=== PATIENT | female | born 1960 | race Caucasian/White ===

== ENCOUNTER 2020-07-25 21:57 | Observation (INO) ==
[2020-07-26] MEDS ORDERED: Melatonin 3 MG TABLET PO PRN (00:39)
[2020-07-26] MEDS ORDERED: Acetaminophen 325 MG TABLET PO PRN (00:39)
[2020-07-26] MEDS ORDERED: Ondansetron 4 MG/2 ML VIAL IVP PRN (00:39)
[2020-07-26] MEDS ORDERED: Naloxone 0.4 MG/ML INJ IVP PRN (00:39)
[2020-07-26 02:58] LABS: Basophils % 0.5 %; Eosinophils # 0.2 K/mcL (0.0-0.6); Eosinophils % 2.1 %; Hematocrit 38.8 % (35.3-44.9); Hemoglobin 12.7 g/dL (11.5-15.4); Immature Granulocytes % 0.3 % (0-4); Lymphocytes # 1.4 K/mcL (0.6-4.6); Lymphocytes % 16.4 %; Mean Corpuscular HGB Conc 32.7 g/dL (31.6-35.5); Mean Corpuscular Hemoglobin 29.4 pg (28.0-33.3); Mean Corpuscular Volume 89.8 fL (83.0-100.0); Mean Platelet Volume 10.1 fL (9.4-12.4); Monocytes # 0.6 K/mcL (0.0-1.3); Neutrophils # 6.3 K/mcL (1.6-8.9); Platelet Count 277 K/mcL (140-400); Red Blood Count 4.32 M/mcL (3.82-4.97); Segmented Neutrophils % 73.7 %; White Blood Count 8.6 K/mcL (4.3-11.1)
[2020-07-26 03:14] LABS: INR 1.3; Prothrombin Time 14.7 Seconds (9.4-12.1)
[2020-07-26 03:20] LABS: Alanine Aminotransferase 14 Units/L (7-52); Albumin 3.9 g/dL (3.5-5.7); Albumin/Globulin Ratio 1.1 (1.1-2.2); Alkaline Phosphatase 81 Units/L (34-104); Aspartate Amino Transferase 15 Units/L (13-39); BUN/Creatinine Ratio 18 (6-26); Bilirubin,Total 0.4 mg/dL (0.3-1.0); Blood Urea Nitrogen 18 mg/dL (8-23); Calcium 9.4 mg/dL (8.6-10.3); Carbon Dioxide 27 mEq/L (23-29); Chloride 102 mEq/L (98-107); Globulin 3.6 g/dL (2.4-3.5); Glucose 118 mg/dL (70-105); Osmolality,Calculated 287 (280-300); Phosphorous 4.4 mg/dL (2.7-4.5); Potassium 3.7 mEq/L (3.5-5.1); Sodium 137 mEq/L (136-145); Total Protein 7.5 g/dL (6.4-8.9); Troponin I < 0.03 ng/mL (< 0.04); eGFR For African Americans > 60 (> 60); eGFR For Non-African Americans 58 (> 60)
[2020-07-26] MEDS ORDERED: Regadenoson 0.4 MG/5 ML SYRINGE IVP ONE (07:06)
[2020-07-26 14:47] VITALS: BP 121/72
[2020-07-26] MEDS ORDERED: *HR* Heparin 5,000 UNIT/ML VIAL SQ SCH (18:00)
== END 2020-07-26 16:50 | disposition home or self-care (01) ==
LOC: 3BNU → SUATTDRO 07-26 00:02
PROVIDERS: ADMIT Internal Medicine; ATTEND Registered Nurse

== ENCOUNTER 2021-04-15 19:57 | Inpatient (IN) ==
[2021-04-16] MEDS ORDERED: Acetaminophen 325 MG TABLET PO PRN (04:40)
[2021-04-16] MEDS ORDERED: Naloxone 0.4 MG/ML INJ IVP PRN (04:40)
[2021-04-16] MEDS ORDERED: Ondansetron 4 MG/2 ML VIAL IVP PRN (04:40)
[2021-04-16] MEDS ORDERED: Perflutren Lipid Microsphere 1.3 ML in 0.9 % Sodium Chloride 8.7 ML IVP PRN (04:51)
[2021-04-16] MEDS ORDERED: Amiodarone Premix 360 MG/200 ML BAG IVC ONE (04:53)
[2021-04-16] MEDS ORDERED: levoFLOXacin 750 MG/150 ML 750 MG/150 ML BAG IVPB SCH (05:00)
[2021-04-16] MEDS ORDERED: Amiodarone Premix 360 MG/200 ML BAG IVC SCH ×2 (05:30→10:54)
[2021-04-16 06:09] LABS: Basophils % 0.1 %; Hematocrit 40.3 % (35.3-44.9); Hemoglobin 12.6 g/dL (11.5-15.4); Immature Granulocytes % 0.4 % (0-4); Lymphocytes # 0.5 K/mcL (0.6-4.6); Lymphocytes % 5.5 %; Mean Corpuscular HGB Conc 31.3 g/dL (31.6-35.5); Mean Corpuscular Hemoglobin 28.4 pg (28.0-33.3); Mean Corpuscular Volume 90.8 fL (83.0-100.0); Mean Platelet Volume 10.5 fL (9.4-12.4); Monocytes # 0.3 K/mcL (0.0-1.3); Monocytes % 3.1 %; Neutrophils # 7.4 K/mcL (1.6-8.9); Platelet Count 218 K/mcL (140-400); Red Blood Count 4.44 M/mcL (3.82-4.97); Red Cell Distribution Width 13.9 % (11.5-14.5); Segmented Neutrophils % 90.9 %; White Blood Count 8.1 K/mcL (4.3-11.1)
[2021-04-16 06:19] LABS: INR 1.6; Prothrombin Time 17.3 Seconds (9.4-12.1)
[2021-04-16 06:23] LABS: D-Dimer 1183 ng/mLFEU (0-500)
[2021-04-16 06:25] LABS: Chol/HDL Ratio 3.7 (0-4.9); Cholesterol 103 mg/dL (< 200); HDL Cholesterol 28 mg/dL (40-59); LDL Cholesterol,Calculated 58 mg/dL (< 100); Magnesium 1.9 mg/dL (1.6-2.6); Phosphorous 3.4 mg/dL (2.7-4.5); Triglycerides 87 mg/dL (< 150); Troponin I < 0.03 ng/mL (< 0.04)
[2021-04-16 06:26] LABS: Calcium 8.7 mg/dL (8.6-10.3); Potassium 4.9 mEq/L (3.5-5.1)
[2021-04-16 06:28] LABS: Fibrinogen 727 mg/dL (169-393)
[2021-04-16] MEDS ORDERED: GuaiFENesin/Codeine Oral Soln 5 ML UDC PO PRN (06:29)
[2021-04-16 06:37] LABS: Thyroid Stimulating Hormone 0.241 mcIU/mL (0.340-5.600)
[2021-04-16] MEDS: Apixaban 5 MG TABLET PO SCH ×2 (08:49→19:55)
[2021-04-16] MEDS: (Ezetimibe [Zetia] 10 MG Tablet) PO SCH (08:50)
[2021-04-16] MEDS ORDERED: Metoprolol XL (24 HR) Succ 25 MG TAB.ER.24H PO SCH (09:00)
[2021-04-16 09:58] LABS: Bacteria,Urine Few per hpf (None-Few); Bilirubin,Urine Negative (Negative); Blood,Urine Large (Negative); Clarity,Urine Turbid (Clear); Color,Urine Light-Yellow (Yellow); Glucose,Urine (UA) Normal (Normal); Hyaline Casts,Urine Few per lpf (None Seen); Ketones,Urine Negative (Negative); Leukocyte Esterase,Urine Negative (Negative); Mucus,Urine Few per lpf (None-Few); Nitrite,Urine Negative (Negative); Protein,Urine 30 mg/dL (Neg-Trace); RBC,Urine 50-100 per hpf (0-3); Specific Gravity,Urine 1.019 (1.010-1.025); Squamous Epithelial Cell,Urine Few per hpf (None-Few); Uric Acid Crystals,Urine Present per hpf; Urobilinogen,Urine Normal (Normal)
[2021-04-16] MEDS ORDERED: Metoprolol XL (24 HR) Succ 25 MG TAB.ER.24H PO ONE (10:00)
[2021-04-16 13:00] LABS: Estimated Average Glucose 146 mg/dl; Hemoglobin A1C 6.7 %
[2021-04-16] MEDS: Ipratropium 1 PUFF INHALER IH SCH ×4 (15:48→23:48)
[2021-04-16] MEDS: *HR* Metoprolol 5 MG/5 ML VIAL IVP PRN (16:37)
[2021-04-16 19:02] LABS: Albumin 3.4 g/dL (3.5-5.7); Albumin/Globulin Ratio 0.8 (1.1-2.2); Bilirubin,Direct 0.1 mg/dL (0.0-0.2); Bilirubin,Indirect 0.3 mg/dL (0.0-1.0); Bilirubin,Total 0.4 mg/dL (0.3-1.0); Globulin 4.2 g/dL (2.4-3.5); Total Protein 7.6 g/dL (6.4-8.9)
[2021-04-16] MEDS: Metoprolol XL (24 HR) Succ 25 MG TAB.ER.24H PO SCH (19:55)
[2021-04-17] MEDS: tiZANidine 4 MG TABLET PO PRN (02:02)
[2021-04-17 02:07] LABS: Basophils % 0.1 %; Hematocrit 41.6 % (35.3-44.9); Hemoglobin 13.6 g/dL (11.5-15.4); Immature Granulocytes % 0.9 % (0-4); Lymphocytes # 0.4 K/mcL (0.6-4.6); Lymphocytes % 4.9 %; Mean Corpuscular HGB Conc 32.7 g/dL (31.6-35.5); Mean Corpuscular Hemoglobin 28.9 pg (28.0-33.3); Mean Corpuscular Volume 88.3 fL (83.0-100.0); Mean Platelet Volume 10.8 fL (9.4-12.4); Monocytes # 0.3 K/mcL (0.0-1.3); Monocytes % 3.7 %; Platelet Count 299 K/mcL (140-400); Red Blood Count 4.71 M/mcL (3.82-4.97); Red Cell Distribution Width 13.8 % (11.5-14.5); Segmented Neutrophils % 90.4 %; White Blood Count 7.8 K/mcL (4.3-11.1)
[2021-04-17 02:29] LABS: Albumin 3.5 g/dL (3.5-5.7); Albumin/Globulin Ratio 0.8 (1.1-2.2); Bilirubin,Total 0.4 mg/dL (0.3-1.0); Calcium 9.7 mg/dL (8.6-10.3); Globulin 4.4 g/dL (2.4-3.5); Potassium 4.8 mEq/L (3.5-5.1); Total Protein 7.9 g/dL (6.4-8.9)
[2021-04-17] MEDS ORDERED: 0.9 % Sodium Chloride 500 ML ONE (03:24)
[2021-04-17] MEDS: Ipratropium 1 PUFF INHALER IH SCH ×5 (03:59→20:10)
[2021-04-17] MEDS: 0.9 % Sodium Chloride 500 ML IVC SCH ×2 (07:27→07:28)
[2021-04-17] MEDS: (Ezetimibe [Zetia] 10 MG Tablet) PO SCH (08:44)
[2021-04-17] MEDS: Metoprolol XL (24 HR) Succ 25 MG TAB.ER.24H PO SCH ×2 (08:44→21:23)
[2021-04-17] MEDS: Apixaban 5 MG TABLET PO SCH ×2 (08:44→21:23)
[2021-04-17] MEDS ORDERED: *HR* Digoxin 0.5 MG/2 ML AMPUL IVP ONE (09:30)
[2021-04-17] MEDS ORDERED: Remdesivir 200 MG in 0.9 % Sodium Chloride 100 ML IVPB ONE (10:43)
[2021-04-17] MEDS: Benzonatate 100 MG CAPSULE PO PRN (11:09)
[2021-04-17] MEDS: *HR* Digoxin 0.5 MG/2 ML AMPUL IVP SCH ×2 (16:30→21:23)
[2021-04-17] MEDS ORDERED: Saliva Stimulant 44.3ml BOTTLE PO PRN (21:32)
[2021-04-17 21:53] LABS: ABG Base Excess -1 mEq/L (-2 to 3); ABG HCO3 23 mEq/L (21-27); ABG Oxygen Saturation 94 % (95-98); ABG PCO2 35 mmHg (35-45); ABG PH 7.42 pH Units (7.32-7.45); ABG PO2 71 mmHg (85-104); ABG TCO2 24 mEq/L (20-26); Blood Gas Modality CPAP/PS; Blood Gas Pressure Support 16 cm H2O
[2021-04-18] MEDS: tiZANidine 4 MG TABLET PO PRN ×2 (00:38→23:15)
[2021-04-18] MEDS: Saline Nasal Spray 44 ML BOTTLE NS SCH ×4 (00:38→20:35)
[2021-04-18] MEDS: Ipratropium 1 PUFF INHALER IH SCH ×7 (01:13→23:23)
[2021-04-18] MEDS ORDERED: *HR* OxyCODONE/APAP 5/325 TABLET PO ONE (03:51)
[2021-04-18 05:09] LABS: Albumin 3.6 g/dL (3.5-5.7); Albumin/Globulin Ratio 0.8 (1.1-2.2); Bilirubin,Direct 0.1 mg/dL (0.0-0.2); Bilirubin,Indirect 0.5 mg/dL (0.0-1.0); Bilirubin,Total 0.6 mg/dL (0.3-1.0); Globulin 4.4 g/dL (2.4-3.5)
[2021-04-18] MEDS: Chlorhexidine Rinse 15 ML MOUTHWASH MM SCH ×2 (08:44→20:35)
[2021-04-18] MEDS: Artificial Tears SOLN 15 ML BOTTLE BOTH EYES SCH ×4 (08:44→20:35)
[2021-04-18] MEDS: (Ezetimibe [Zetia] 10 MG Tablet) PO SCH (08:45)
[2021-04-18] MEDS: Metoprolol XL (24 HR) Succ 25 MG TAB.ER.24H PO SCH ×2 (08:45→20:35)
[2021-04-18] MEDS: Apixaban 5 MG TABLET PO SCH ×2 (08:45→20:34)
[2021-04-18] MEDS: Remdesivir 100 MG in 0.9 % Sodium Chloride 100 ML IVPB SCH (11:29)
[2021-04-18] MEDS ORDERED: Furosemide 40 MG/4 ML VIAL IVP ONE (11:45)
[2021-04-19] MEDS: Ipratropium 1 PUFF INHALER IH SCH ×5 (03:46→20:18)
[2021-04-19 06:59] LABS: Albumin 3.9 g/dL (3.5-5.7); Albumin/Globulin Ratio 0.9 (1.1-2.2); Bilirubin,Direct 0.2 mg/dL (0.0-0.2); Bilirubin,Indirect 0.5 mg/dL (0.0-1.0); Bilirubin,Total 0.7 mg/dL (0.3-1.0); Globulin 4.3 g/dL (2.4-3.5); Total Protein 8.2 g/dL (6.4-8.9)
[2021-04-19] MEDS: Apixaban 5 MG TABLET PO SCH ×2 (08:52→21:11)
[2021-04-19] MEDS: Chlorhexidine Rinse 15 ML MOUTHWASH MM SCH ×2 (08:52→21:11)
[2021-04-19] MEDS: (Ezetimibe [Zetia] 10 MG Tablet) PO SCH (08:52)
[2021-04-19] MEDS: Metoprolol XL (24 HR) Succ 25 MG TAB.ER.24H PO SCH ×2 (08:52→21:11)
[2021-04-19] MEDS: Artificial Tears SOLN 15 ML BOTTLE BOTH EYES SCH ×4 (09:08→21:11)
[2021-04-19] MEDS: Saline Nasal Spray 44 ML BOTTLE NS SCH ×4 (09:08→21:11)
[2021-04-19 10:13] LABS: Hematocrit 46.5 % (35.3-44.9); Mean Corpuscular HGB Conc 32.3 g/dL (31.6-35.5); Mean Corpuscular Hemoglobin 28.1 pg (28.0-33.3); Mean Corpuscular Volume 87.2 fL (83.0-100.0); Mean Platelet Volume 10.5 fL (9.4-12.4); Platelet Count 469 K/mcL (140-400); Red Blood Count 5.33 M/mcL (3.82-4.97); Red Cell Distribution Width 13.6 % (11.5-14.5); White Blood Count 10.9 K/mcL (4.3-11.1)
[2021-04-19 10:32] LABS: Calcium 9.9 mg/dL (8.6-10.3); Potassium 4.7 mEq/L (3.5-5.1)
[2021-04-19] MEDS: Remdesivir 100 MG in 0.9 % Sodium Chloride 100 ML IVPB SCH (10:41)
[2021-04-20] MEDS: Ipratropium 1 PUFF INHALER IH SCH ×6 (00:44→20:46)
[2021-04-20 04:37] LABS: Basophils % 0.2 %; Hematocrit 46.3 % (35.3-44.9); Hemoglobin 14.9 g/dL (11.5-15.4); Immature Granulocytes % 0.8 % (0-4); Lymphocytes # 0.8 K/mcL (0.6-4.6); Lymphocytes % 5.8 %; Mean Corpuscular HGB Conc 32.2 g/dL (31.6-35.5); Mean Corpuscular Hemoglobin 28.1 pg (28.0-33.3); Mean Corpuscular Volume 87.2 fL (83.0-100.0); Mean Platelet Volume 10.6 fL (9.4-12.4); Monocytes # 0.6 K/mcL (0.0-1.3); Monocytes % 4.5 %; Neutrophils # 12.2 K/mcL (1.6-8.9); Platelet Count 424 K/mcL (140-400); Red Blood Count 5.31 M/mcL (3.82-4.97); Red Cell Distribution Width 13.4 % (11.5-14.5); Segmented Neutrophils % 88.7 %; White Blood Count 13.8 K/mcL (4.3-11.1)
[2021-04-20 04:54] LABS: Albumin 3.8 g/dL (3.5-5.7); Albumin/Globulin Ratio 0.9 (1.1-2.2); Bilirubin,Direct 0.2 mg/dL (0.0-0.2); Bilirubin,Indirect 0.6 mg/dL (0.0-1.0); Bilirubin,Total 0.8 mg/dL (0.3-1.0); Globulin 4.1 g/dL (2.4-3.5); Total Protein 7.9 g/dL (6.4-8.9)
[2021-04-20 04:57] LABS: Calcium 9.8 mg/dL (8.6-10.3); Potassium 4.8 mEq/L (3.5-5.1)
[2021-04-20] MEDS: Metoprolol XL (24 HR) Succ 25 MG TAB.ER.24H PO SCH ×2 (08:34→21:12)
[2021-04-20] MEDS: Apixaban 5 MG TABLET PO SCH ×2 (08:34→21:12)
[2021-04-20] MEDS: Saline Nasal Spray 44 ML BOTTLE NS SCH ×4 (08:35→21:11)
[2021-04-20] MEDS: Chlorhexidine Rinse 15 ML MOUTHWASH MM SCH ×3 (08:35→21:12)
[2021-04-20] MEDS: Artificial Tears SOLN 15 ML BOTTLE BOTH EYES SCH ×4 (08:35→21:11)
[2021-04-20] MEDS: (Ezetimibe [Zetia] 10 MG Tablet) PO SCH (08:36)
[2021-04-20] MEDS: tiZANidine 4 MG TABLET PO PRN (09:55)
[2021-04-20] MEDS: Remdesivir 100 MG in 0.9 % Sodium Chloride 100 ML IVPB SCH (11:47)
[2021-04-21] MEDS: Ipratropium 1 PUFF INHALER IH SCH ×7 (00:31→23:39)
[2021-04-21 03:30] LABS: Basophils % 0.1 %; Hematocrit 46.2 % (35.3-44.9); Immature Granulocytes % 1.2 % (0-4); Lymphocytes # 0.7 K/mcL (0.6-4.6); Lymphocytes % 4.5 %; Mean Corpuscular HGB Conc 32.5 g/dL (31.6-35.5); Mean Corpuscular Volume 86.2 fL (83.0-100.0); Mean Platelet Volume 9.9 fL (9.4-12.4); Monocytes # 0.5 K/mcL (0.0-1.3); Monocytes % 3.2 %; Neutrophils # 13.6 K/mcL (1.6-8.9); Platelet Count 333 K/mcL (140-400); Red Blood Count 5.36 M/mcL (3.82-4.97); Red Cell Distribution Width 13.2 % (11.5-14.5); White Blood Count 14.9 K/mcL (4.3-11.1)
[2021-04-21 03:51] LABS: Calcium 9.4 mg/dL (8.6-10.3); Potassium 4.9 mEq/L (3.5-5.1)
[2021-04-21] MEDS: Apixaban 5 MG TABLET PO SCH ×2 (08:48→21:36)
[2021-04-21] MEDS: Metoprolol XL (24 HR) Succ 25 MG TAB.ER.24H PO SCH ×2 (08:48→21:37)
[2021-04-21] MEDS: Benzonatate 100 MG CAPSULE PO PRN (08:49)
[2021-04-21] MEDS: Saline Nasal Spray 44 ML BOTTLE NS SCH ×4 (08:49→21:37)
[2021-04-21] MEDS: Chlorhexidine Rinse 15 ML MOUTHWASH MM SCH ×2 (08:49→21:26)
[2021-04-21] MEDS: (Ezetimibe [Zetia] 10 MG Tablet) PO SCH (08:50)
[2021-04-21 09:26] LABS: Albumin 3.8 g/dL (3.5-5.7); Bilirubin,Direct 0.2 mg/dL (0.0-0.2); Bilirubin,Indirect 0.5 mg/dL (0.0-1.0); Bilirubin,Total 0.7 mg/dL (0.3-1.0); Globulin 3.8 g/dL (2.4-3.5); Total Protein 7.6 g/dL (6.4-8.9)
[2021-04-21] MEDS: Artificial Tears SOLN 15 ML BOTTLE BOTH EYES SCH ×4 (09:29→21:37)
[2021-04-21] MEDS: Remdesivir 100 MG in 0.9 % Sodium Chloride 100 ML IVPB SCH (11:47)
[2021-04-22] MEDS: Ipratropium 1 PUFF INHALER IH SCH ×6 (03:49→22:53)
[2021-04-22 07:06] LABS: Eosinophils # 0.1 K/mcL (0.0-0.6); Eosinophils % 0.8 %; Hematocrit 44.5 % (35.3-44.9); Hemoglobin 14.7 g/dL (11.5-15.4); Immature Granulocytes % 0.7 % (0-4); Lymphocytes # 0.5 K/mcL (0.6-4.6); Lymphocytes % 5.6 %; Mean Corpuscular Hemoglobin 28.3 pg (28.0-33.3); Mean Corpuscular Volume 85.6 fL (83.0-100.0); Mean Platelet Volume 10.3 fL (9.4-12.4); Monocytes # 0.2 K/mcL (0.0-1.3); Monocytes % 2.2 %; Platelet Count 200 K/mcL (140-400); Red Cell Distribution Width 13.1 % (11.5-14.5); Segmented Neutrophils % 90.7 %; White Blood Count 8.8 K/mcL (4.3-11.1)
[2021-04-22 07:29] LABS: Albumin 3.7 g/dL (3.5-5.7); Albumin/Globulin Ratio 1.1 (1.1-2.2); Bilirubin,Direct 0.2 mg/dL (0.0-0.2); Bilirubin,Indirect 0.7 mg/dL (0.0-1.0); Bilirubin,Total 0.9 mg/dL (0.3-1.0); Calcium 9.3 mg/dL (8.6-10.3); Globulin 3.5 g/dL (2.4-3.5); Potassium 4.8 mEq/L (3.5-5.1); Total Protein 7.2 g/dL (6.4-8.9)
[2021-04-22] MEDS: Apixaban 5 MG TABLET PO SCH (08:19)
[2021-04-22] MEDS: Metoprolol XL (24 HR) Succ 25 MG TAB.ER.24H PO SCH ×2 (08:19→21:13)
[2021-04-22] MEDS: Saline Nasal Spray 44 ML BOTTLE NS SCH ×4 (10:53→20:48)
[2021-04-22] MEDS: Chlorhexidine Rinse 15 ML MOUTHWASH MM SCH ×2 (10:53→20:48)
[2021-04-22] MEDS: (Ezetimibe [Zetia] 10 MG Tablet) PO SCH (10:53)
[2021-04-22] MEDS: Artificial Tears SOLN 15 ML BOTTLE BOTH EYES SCH ×4 (10:53→20:48)
[2021-04-22] MEDS ORDERED: *HR* Enoxaparin 100 MG/ML SYRINGE SQ SCH (21:00)
[2021-04-22] MEDS: *HR* Enoxaparin 40 MG/0.4 ML SYRINGE SQ SCH (22:27)
[2021-04-22] MEDS: *HR* Enoxaparin 100 MG/ML SYRINGE SQ SCH (22:27)
[2021-04-23] MEDS ORDERED: *HR* LORazepam 2 MG/ML VIAL IVP ONE (01:19)
[2021-04-23 02:16] LABS: Basophils % 0.1 %; Eosinophils % 0.4 %; Hemoglobin 15.1 g/dL (11.5-15.4); Immature Granulocytes % 0.6 % (0-4); Lymphocytes # 0.3 K/mcL (0.6-4.6); Lymphocytes % 3.6 %; Mean Corpuscular HGB Conc 33.6 g/dL (31.6-35.5); Mean Corpuscular Hemoglobin 28.7 pg (28.0-33.3); Mean Corpuscular Volume 85.6 fL (83.0-100.0); Mean Platelet Volume 10.6 fL (9.4-12.4); Monocytes # 0.2 K/mcL (0.0-1.3); Monocytes % 2.4 %; Neutrophils # 7.5 K/mcL (1.6-8.9); Platelet Count 184 K/mcL (140-400); Red Blood Count 5.26 M/mcL (3.82-4.97); Segmented Neutrophils % 92.9 %; White Blood Count 8.1 K/mcL (4.3-11.1)
[2021-04-23 02:23] LABS: BUN/Creatinine Ratio 51 (6-26); Blood Urea Nitrogen 55 mg/dL (8-23); Calcium 9.1 mg/dL (8.6-10.3); Carbon Dioxide 26 mEq/L (23-29); Chloride 98 mEq/L (98-107); Glucose 122 mg/dL (70-105); Osmolality,Calculated 294 (280-300); Potassium 4.8 mEq/L (3.5-5.1); Sodium 134 mEq/L (136-145); eGFR For African Americans > 60 (> 60); eGFR For Non-African Americans 52 (> 60)
[2021-04-23] MEDS: *HR* Metoprolol 5 MG/5 ML VIAL IVP PRN ×2 (03:36→11:10)
[2021-04-23] MEDS: Ipratropium 1 PUFF INHALER IH SCH ×5 (04:01→20:31)
[2021-04-23] MEDS: *HR* Enoxaparin 100 MG/ML SYRINGE SQ SCH ×2 (05:53→16:27)
[2021-04-23] MEDS: *HR* Enoxaparin 40 MG/0.4 ML SYRINGE SQ SCH ×2 (05:53→16:27)
[2021-04-23] MEDS: Chlorhexidine Rinse 15 ML MOUTHWASH MM SCH ×2 (07:50→20:08)
[2021-04-23] MEDS: Metoprolol XL (24 HR) Succ 25 MG TAB.ER.24H PO SCH ×2 (07:50→20:08)
[2021-04-23] MEDS ORDERED: Saline Nasal Spray 44 ML BOTTLE NS PRN (07:57)
[2021-04-23] MEDS ORDERED: Artificial Tears SOLN 15 ML BOTTLE BOTH EYES PRN (07:57)
[2021-04-23] MEDS: (Ezetimibe [Zetia] 10 MG Tablet) PO SCH (07:58)
[2021-04-23] MEDS: Benzonatate 100 MG CAPSULE PO PRN ×2 (08:31→20:08)
[2021-04-23] MEDS: tiZANidine 4 MG TABLET PO PRN (20:08)
[2021-04-23] MEDS ORDERED: Morphine Sulfate 2 MG/ML SYRINGE IVP ONE (22:21)
[2021-04-24] MEDS: Ipratropium 1 PUFF INHALER IH SCH ×7 (00:31→23:52)
[2021-04-24] MEDS ORDERED: 0.9 % Sodium Chloride 1,000 ML IVC ONE (01:21)
[2021-04-24] MEDS ORDERED: Acetaminophen IV 500 MG/50 ML BAG IVPB ONE (01:45)
[2021-04-24] MEDS: *HR* Enoxaparin 100 MG/ML SYRINGE SQ SCH (04:57)
[2021-04-24] MEDS: *HR* Enoxaparin 40 MG/0.4 ML SYRINGE SQ SCH (04:57)
[2021-04-24 05:44] LABS: Basophils % 0.1 %; Eosinophils # 0.1 K/mcL (0.0-0.6); Eosinophils % 1.3 %; Hematocrit 42.8 % (35.3-44.9); Hemoglobin 14.4 g/dL (11.5-15.4); Immature Granulocytes % 0.7 % (0-4); Lymphocytes # 0.3 K/mcL (0.6-4.6); Lymphocytes % 3.8 %; Mean Corpuscular HGB Conc 33.6 g/dL (31.6-35.5); Mean Corpuscular Hemoglobin 28.8 pg (28.0-33.3); Mean Corpuscular Volume 85.6 fL (83.0-100.0); Mean Platelet Volume 10.9 fL (9.4-12.4); Monocytes # 0.1 K/mcL (0.0-1.3); Monocytes % 1.4 %; Neutrophils # 8.1 K/mcL (1.6-8.9); Platelet Count 168 K/mcL (140-400); Red Cell Distribution Width 12.9 % (11.5-14.5); Segmented Neutrophils % 92.7 %; White Blood Count 8.8 K/mcL (4.3-11.1)
[2021-04-24 06:05] LABS: Potassium 4.6 mEq/L (3.5-5.1)
[2021-04-24] MEDS: Chlorhexidine Rinse 15 ML MOUTHWASH MM SCH ×2 (07:52→20:23)
[2021-04-24] MEDS: Metoprolol XL (24 HR) Succ 25 MG TAB.ER.24H PO SCH ×2 (07:52→20:23)
[2021-04-24] MEDS: Benzonatate 100 MG CAPSULE PO PRN (07:54)
[2021-04-24] MEDS ORDERED: Albumin Human 5% 12.5 GM/250 ML IV.SOLN IVPB ONE (12:23)
[2021-04-24] MEDS ORDERED: *HR* Heparin 5,000 UNIT/ML VIAL IVP PRN ×2 (16:28)
[2021-04-24 19:57] LABS: INR 1.2; Prothrombin Time 13.7 Seconds (9.4-12.1)
[2021-04-24 20:08] LABS: Heparin anti-factor XA UFH > 2.00 IU/mL (0.30-0.70)
[2021-04-24] MEDS: Dexmedetomidine HCl 400 MCG/100 ML MLS IVC SCH (20:22)
[2021-04-24] MEDS: Heparin 25,000 UNIT/250 ML 25,000 UNIT/250 ML IV.SOLN IVC SCH (20:23)
[2021-04-25] MEDS: Dexmedetomidine HCl 400 MCG/100 ML MLS IVC SCH ×2 (00:07→05:59)
[2021-04-25 02:27] LABS: Heparin anti-factor XA UFH 1.6 IU/mL (0.30-0.70)
[2021-04-25 03:45] LABS: Immature Granulocytes % 0.4 % (0-4); Red Cell Distribution Width 12.7 % (11.5-14.5)
[2021-04-25 03:47] LABS: Basophils % 0.2 %; Eosinophils # 0.1 K/mcL (0.0-0.6); Eosinophils % 1.5 %; Hematocrit 37.9 % (35.3-44.9); Hemoglobin 12.6 g/dL (11.5-15.4); Immature Platelets 5.5 % (1.1-6.1); Lymphocytes # 0.2 K/mcL (0.6-4.6); Lymphocytes % 3.6 %; Mean Corpuscular HGB Conc 33.2 g/dL (31.6-35.5); Mean Corpuscular Hemoglobin 28.3 pg (28.0-33.3); Mean Platelet Volume 10.8 fL (9.4-12.4); Monocytes # 0.1 K/mcL (0.0-1.3); Monocytes % 1.9 %; Neutrophils # 4.4 K/mcL (1.6-8.9); Platelet Count 115 K/mcL (140-400); Red Blood Count 4.46 M/mcL (3.82-4.97); Segmented Neutrophils % 92.4 %; White Blood Count 4.8 K/mcL (4.3-11.1)
[2021-04-25 03:49] LABS: VBG Ionized Calcium 1.16 mmol/L (1.15-1.35)
[2021-04-25 04:05] LABS: Albumin 3.4 g/dL (3.5-5.7); Albumin/Globulin Ratio 1.2 (1.1-2.2); Bilirubin,Direct 0.3 mg/dL (0.0-0.2); Bilirubin,Indirect 0.8 mg/dL (0.0-1.0); Bilirubin,Total 1.1 mg/dL (0.3-1.0); Calcium 8.8 mg/dL (8.6-10.3); Globulin 2.9 g/dL (2.4-3.5); Magnesium 2.6 mg/dL (1.6-2.6); Phosphorous 4.2 mg/dL (2.7-4.5); Potassium 5.2 mEq/L (3.5-5.1); Total Protein 6.3 g/dL (6.4-8.9)
[2021-04-25] MEDS: Ipratropium 1 PUFF INHALER IH SCH ×6 (04:31→23:57)
[2021-04-25 04:43] LABS: ABG Base Excess -2 mEq/L (-2 to 3); ABG HCO3 23 mEq/L (21-27); ABG Oxygen Saturation 92 % (95-98); ABG PCO2 38 mmHg (35-45); ABG PH 7.39 pH Units (7.32-7.45); ABG PO2 63 mmHg (85-104); ABG TCO2 24 mEq/L (20-26)
[2021-04-25] MEDS: Norepinephrine 4 MG/254 ML IV.SOLN IVC SCH ×2 (05:51→16:12)
[2021-04-25] MEDS: Heparin 25,000 UNIT/250 ML 25,000 UNIT/250 ML IV.SOLN IVC SCH ×2 (06:09→22:57)
[2021-04-25] MEDS: Chlorhexidine Rinse 15 ML MOUTHWASH MM SCH ×2 (09:29→19:55)
[2021-04-25] MEDS: Metoprolol XL (24 HR) Succ 25 MG TAB.ER.24H PO SCH (09:30)
[2021-04-25] MEDS ORDERED: Perflutren Lipid Microsphere 1.3 ML in 0.9 % Sodium Chloride 8.7 ML IVP PRN (11:49)
[2021-04-25] MEDS ORDERED: *HR* Midazolam HCl 2 MG/2 ML VIAL IVP ONE (13:25)
[2021-04-25] MEDS ORDERED: *HR* Midazolam HCl 5 MG/5 ML VIAL IVP ONE (13:25)
[2021-04-25] MEDS ORDERED: *HR* Etomidate 20 MG/10 ML AMPUL IVP ONE (13:25)
[2021-04-25] MEDS ORDERED: *HR* Rocuronium Bromide 50 MG/5 ML VIAL IVP ONE (13:25)
[2021-04-25] MEDS ORDERED: *HR* Propofol 200 MG/20 ML VIAL IVP ONE (13:25)
[2021-04-25] MEDS ORDERED: 0.9 % Sodium Chloride 1,000 ML ONE (17:09)
[2021-04-25] MEDS: FentaNYL (PF) 1,000 MCG/100 ML IV.SOLN IVC SCH (17:53)
[2021-04-25] MEDS: Cisatracurium 200 MG in 0.9 % Sodium Chloride 180 ML IVC SCH (17:53)
[2021-04-25 18:20] LABS: ABG Base Excess -3 mEq/L (-2 to 3); ABG HCO3 26 mEq/L (21-27); ABG Oxygen Saturation 94 % (95-98); ABG PCO2 60 mmHg (35-45); ABG PH 7.24 pH Units (7.32-7.45); ABG PO2 86 mmHg (85-104); ABG TCO2 28 mEq/L (20-26); Blood Gas Modality ASSIST CONTROL; Blood Gas VT 450 cc
[2021-04-25] MEDS: Artificial Tears SOLN 15 ML BOTTLE BOTH EYES SCH (19:55)
[2021-04-25] MEDS: *HR* Metoprolol 5 MG/5 ML VIAL IVP PRN (21:35)
[2021-04-25 22:06] LABS: ABG Base Excess -4 mEq/L (-2 to 3); ABG HCO3 26 mEq/L (21-27); ABG Oxygen Saturation 100 % (95-98); ABG PCO2 74 mmHg (35-45); ABG PH 7.16 pH Units (7.32-7.45); ABG PO2 326 mmHg (85-104); ABG TCO2 29 mEq/L (20-26); Blood Gas Modality ASSIST CONTROL; Blood Gas VT 450 cc
[2021-04-25] MEDS ORDERED: Sodium Bicarbonate 150 MEQ in D5% in Water 1,000 ML IVC SCH (22:45)
[2021-04-26] MEDS: FentaNYL (PF) 1,000 MCG/100 ML IV.SOLN IVC SCH ×5 (00:20→22:07)
[2021-04-26] MEDS: Artificial Tears SOLN 15 ML BOTTLE BOTH EYES SCH ×6 (00:30→19:42)
[2021-04-26] MEDS: Cisatracurium 200 MG in 0.9 % Sodium Chloride 180 ML IVC SCH ×3 (01:22→18:42)
[2021-04-26] MEDS: *HR* Metoprolol 5 MG/5 ML VIAL IVP PRN (01:37)
[2021-04-26] MEDS: Norepinephrine 4 MG/254 ML IV.SOLN IVC SCH ×8 (01:39→23:20)
[2021-04-26] MEDS: Ipratropium 1 PUFF INHALER IH SCH ×6 (02:45→23:56)
[2021-04-26 04:04] LABS: ABG Base Excess -5 mEq/L (-2 to 3); ABG HCO3 25 mEq/L (21-27); ABG Oxygen Saturation 100 % (95-98); ABG PCO2 67 mmHg (35-45); ABG PH 7.18 pH Units (7.32-7.45); ABG PO2 352 mmHg (85-104); ABG TCO2 27 mEq/L (20-26); Blood Gas Modality ASSIST CONTROL; Blood Gas VT 450 cc
[2021-04-26 04:09] LABS: VBG Ionized Calcium 1.14 mmol/L (1.15-1.35)
[2021-04-26 04:12] LABS: Basophils % 0.2 %; Eosinophils % 0.2 %; Hematocrit 41.3 % (35.3-44.9); Hemoglobin 13.6 g/dL (11.5-15.4); Immature Granulocytes % 0.9 % (0-4); Lymphocytes # 0.3 K/mcL (0.6-4.6); Lymphocytes % 1.9 %; Mean Corpuscular HGB Conc 32.9 g/dL (31.6-35.5); Mean Corpuscular Hemoglobin 29.1 pg (28.0-33.3); Mean Corpuscular Volume 88.4 fL (83.0-100.0); Mean Platelet Volume 11.1 fL (9.4-12.4); Monocytes # 0.4 K/mcL (0.0-1.3); Monocytes % 2.4 %; Neutrophils # 16.3 K/mcL (1.6-8.9); Platelet Count 177 K/mcL (140-400); Red Blood Count 4.67 M/mcL (3.82-4.97); Red Cell Distribution Width 13.2 % (11.5-14.5); Segmented Neutrophils % 94.4 %
[2021-04-26 04:20] LABS: White Blood Count 17.3 K/mcL (4.3-11.1)
[2021-04-26 04:25] LABS: Albumin 3.6 g/dL (3.5-5.7); Albumin/Globulin Ratio 1.2 (1.1-2.2); Bilirubin,Direct 0.3 mg/dL (0.0-0.2); Bilirubin,Indirect 0.4 mg/dL (0.0-1.0); Bilirubin,Total 0.7 mg/dL (0.3-1.0); Calcium 8.9 mg/dL (8.6-10.3); Globulin 3.1 g/dL (2.4-3.5); Magnesium 2.9 mg/dL (1.6-2.6); Phosphorous 7.9 mg/dL (2.7-4.5); Potassium 5.8 mEq/L (3.5-5.1); Total Protein 6.7 g/dL (6.4-8.9)
[2021-04-26] MEDS ORDERED: Calcium Gluconate 1gm/50mL 1 GM/50 ML BAG IVPB PRN (05:35)
[2021-04-26] MEDS ORDERED: Insulin Human Regular 10 UNIT in 0.9 % Sodium Chloride 10 ML IV ONE (05:35)
[2021-04-26] MEDS ORDERED: *HR* Dextrose 50 % in Water (Syg) 50 ML SYRINGE IVP ONE (05:39)
[2021-04-26] MEDS ORDERED: *HR* Midazolam HCl 5 MG/5 ML VIAL IVP ONE ×2 (08:11→08:13)
[2021-04-26] MEDS: Chlorhexidine Rinse 15 ML MOUTHWASH MM SCH ×2 (08:14→19:42)
[2021-04-26] MEDS ORDERED: Amiodarone Premix 150 MG/100 ML BAG IVPB ONE (08:37)
[2021-04-26] MEDS ORDERED: Amiodarone Premix 360 MG/200 ML BAG IVC ONE (08:37)
[2021-04-26] MEDS ORDERED: Vasopressin 40 UNIT in D5% in Water 100 ML IVC SCH (08:45)
[2021-04-26] MEDS ORDERED: Pantoprazole 40 MG VIAL IVP SCH (09:00)
[2021-04-26] MEDS: Dexmedetomidine HCl 400 MCG/100 ML MLS IVC SCH (11:03)
[2021-04-26] MEDS: Cefepime HCl 1,000 MG in Water for inj. (sterile) 10 ML IVP SCH ×2 (11:04→19:43)
[2021-04-26] MEDS ORDERED: D10% in Water 500 ML IVC PRN (12:21)
[2021-04-26] MEDS ORDERED: *HR* Alteplase (Cathflo) 2 MG VIAL IVP PRN (13:35)
[2021-04-26] MEDS ORDERED: *HR* Heparin 5,000 UNIT/ML VIAL IVP PRN (13:35)
[2021-04-26] MEDS ORDERED: PrismaSATE BGK 4/2.5 5,000 ML CRRT SCH ×2 (13:45)
[2021-04-26] MEDS ORDERED: Amiodarone Premix 360 MG/200 ML BAG IVC SCH (14:37)
[2021-04-26] MEDS ORDERED: *HR* Adenosine 6 MG/2 ML SYRINGE IVP ONE (15:07)
[2021-04-26] MEDS: Phenylephrine 50 MG in 0.9 % Sodium Chloride 250 ML IVC SCH ×2 (15:30→21:08)
[2021-04-26] MEDS ORDERED: MetroNIDAZOLE 500 MG/100 ML 500 MG/100 ML BAG IVPB SCH (16:00)
[2021-04-26 16:54] LABS: Bilirubin,Urine Negative (Negative); Blood,Urine Large (Negative); Clarity,Urine Ex.Turbid (Clear); Color,Urine Yellow (Yellow); Glucose,Urine (UA) 30 mg/dL (Normal); Granular Casts,Urine Few per lpf (None Seen); Hyaline Casts,Urine Many per lpf (None Seen); Ketones,Urine Negative (Negative); Leukocyte Esterase,Urine Trace (Negative); Mucus,Urine Few per lpf (None-Few); Nitrite,Urine Negative (Negative); PH,Urine 5.5 pH Units (5.0-8.0); Protein,Urine 70 mg/dL (Neg-Trace); RBC,Urine TNTC per hpf (0-3); Specific Gravity,Urine 1.024 (1.010-1.025); Squamous Epithelial Cell,Urine Few per hpf (None-Few); Urobilinogen,Urine Normal (Normal); WBC,Urine 30-50 per hpf (0-3)
[2021-04-26] MEDS ORDERED: Clinimix 5%-20% SOLUTION 2,000 ML with MVI, adult with vitamin K 10 ML, Sodium Phosph... IVC SCH (17:00)
[2021-04-26] MEDS ORDERED: *HR* Adenosine 6 MG/2 ML VIAL IVP ONE (17:07)
[2021-04-26] MEDS: Heparin 25,000 UNIT/250 ML 25,000 UNIT/250 ML IV.SOLN IVC SCH (19:43)
[2021-04-26 19:47] VITALS: TEMP 97.7
[2021-04-26 22:08] VITALS: O2SAT 88
[2021-04-26 23:59] VITALS: BP 63/42
[2021-04-27 02:02] VITALS: PULSE 79
[2021-04-27] MEDS: Ipratropium 1 PUFF INHALER IH SCH (03:24)
== END 2021-04-27 05:04 | disposition expired | DRG 720 ==
LOC: 2NNU → OBSVTOIN 04-16 03:31 → SUATTDRO 04-16 03:31 → ICNU 04-24 18:16
PROVIDERS: ADMIT Internal Medicine; ATTEND Internal Medicine